=== PATIENT | female | born 1985 | race Caucasian/White ===

== ENCOUNTER 2017-06-06 18:40 | Emergency (ER) | payer BC, MEDICAID, OTHER ==
[~2017-06-06] VITALS: Ht 167.6 cm; Wt 77.0 kg
[~2017-06-06 18:40] MED LIST: T3 PO; TIROSINT PO; TRAM50TA2 PO
[2017-06-06 18:58] VITALS: Ht 167.6 cm; Wt 77.0 kg
[2017-06-06 21:41] LABS: ADD SCAN DIFF NO
--- NOTE | 2017-06-06 21:42 | RADRPT ---
PROCEDURE: US OB. CLINICAL INDICATION: Pelvic cramping and spotting. Positive TECHNIQUE: Transabdominal and transvaginal views of the pelvis are available for review. COMPARISON: 02/27/2014 FINDINGS: Uterus: No evidence of masses and normal in size estimated at 8.6 x 5.8 x 4.9 cm. Endometrial cavity: Intrauterine gestational sac, yolk sac and pole are present with the foll owing information: [place]-rump length:0.46 cm heart rate:122 bpm Gestational sac:1.45 cm Ultrasound estimated gestational age:6 weeks 1 day Echogenic area concerning for subchorionic hemorrhage estimated at 2.9 x 1.4 x 2.2 cm. Right ovary/adnexa: Ovarian size is normal estimated at 4.3 x 2.5 x 2.4 cm. No ovarian or adnexal mass lesion is seen. Left ovary/adnexa: Ovarian size normal estimated at 3.6 x 3.1 x 1.7 cm. No ovarian or adnexal mass lesion is seen. Trace amount of nonspecific free fluid. Cul-de-sac: There is no free fluid. RPTAT:HJJR IMPRESSION: 1. Single viable intrauterine with an estimated gestational age of 6 weeks 1 day. 2. Hypoechoic area concerning for subchorionic hemorrhage estimated at 2.9 x 2.2 x 1.4 cm. Conside r follow-up evaluation. 3. Sonographically normal ovaries with a small amount of nonspecific free fluid in the left adnexa. Physician Vicki Date Time Electronically viewed and signed by Physician Vicki on 06/06/2017 21:41 /
[2017-06-06 21:49] LABS: BASOPHIL # 0.1 10^3/ul (0.0-0.1); BASOPHILS % 0.9 % (0.0-2.0); EOSINOPHILS # 0.2 10^3/ul (0.0-0.5); EOSINOPHILS % 1.5 % (0.0-7.0); HEMOGLOBIN 12.7 g/dl (12.0-16.0); LYMPHOCYTES % 30.5 % (15.0-51.0); MEAN CORPUSCULAR HEMOGLOBIN 31.4 pg (29.0-33.0); MEAN CORPUSCULAR HGB CONC 33.4 g/dl (32.0-37.0); MEAN CORPUSCULAR VOLUME 93.8 fl (82.0-101.0); MEAN PLATELET VOLUME 11.7 fl (7.4-10.4); MONOCYTE # 0.6 10^3/ul (0.3-0.9); MONOCYTES % 6.5 % (0.0-11.0); NEUTROPHILS % 60.4 % (39.0-77.0); PLATELET COUNT 176 10^3/UL (140-415); RED BLOOD COUNT 4.05 10^6/ul (4.20-5.40); RED CELL DISTRIBUTION WIDTH 12.4 % (11.5-14.5); WHITE BLOOD COUNT 9.9 10^3/ul (4.8-10.8)
[2017-06-06 22:04] LABS: ADD UMIC YES; UR ASCORBIC ACID NEGATIVE (NEGATIVE); UR BACTERIA MODERATE /HPF (NONE SEEN); UR BILIRUBIN (Dip) NEGATIVE (NEGATIVE); UR BLOOD (Dip) NEGATIVE (NEGATIVE); UR CLARITY CLOUDY (CLEAR); UR COLOR STRAW (YELLOW); UR GLUCOSE (Dip) NEGATIVE (NEGATIVE); UR KETONES (Dip) NEGATIVE (NEGATIVE); UR LEUKOCYTE ESTERASE (Dip) TRACE Leu/ul (NEGATIVE); UR NITRITE (Dip) NEGATIVE (NEGATIVE); UR RBC 0 /HPF (0-5); UR SPECIFIC GRAVITY (Dip) 1.004 (1.003-1.030); UR SQUAMOUS EPITHELIAL CELL FEW /HPF (FEW); UR TOTAL PROTEIN (Dip) NEGATIVE (NEGATIVE); UR UROBILINOGEN (Dip) NEGATIVE (NEGATIVE)
--- NOTE | 2017-06-06 23:07 | ERD ---
ER Documentation Chief Complaint Date/Time DATE: 06/06/17 TIME: 23:06 Chief Complaint vag bleeding x 1 day, 6 weeks preg pt thinks she had miscarriage HPI This 31-year-old female presents with some vaginal spotting for last day. She may have had some tiny clots but notices no tissues. She is approximately 6 weeks by dates. She denies fevers, vomiting, additional symptoms. She is a G1 para 0. ROS All systems reviewed and are negative except as per history of present illness. Medications Home Meds Reported Medications [Tirosint] No Conflict Check, 100 MCG PO DAILY 08/29/15 [T3] No Conflict Check, 25 MCG PO DAILY 08/29/15 Tramadol HCl (Tramadol HCl) 50 Mg Tablet, 50 MG PO HS 08/29/15 Allergies Allergies: Coded Allergies: No Known Allergies (Verified Allergy, Unknown, 04/08/12) PMhx/Soc Medical and Surgical Hx: pt denies Medical Hx, pt denies Surgical Hx History of Surgery: Yes (R L5-S1 microdisk 2011) Anesthesia Reaction: No Hx Neurological Disorder: No Hx Respiratory Disorders: No Hx Cardiac Disorders: No Hx Psychiatric Problems: No Hx Miscellaneous Medical Probl: Yes (hypothyroidism due to rosa's thyroiditis and polycystic ovarian syndro) Hx Alcohol Use: No Hx Substance Use: No Hx Tobacco Use: No Smoking Status: Never smoker Physical Exam Vitals Vital Signs Date Time Temp Pulse Resp B/P Pulse Ox O2 Delivery O2 Flow Rate FiO2 06/06/17 18:58 97.6 74 18 130/82 100 Physical Exam Const: [] Alert, [id number]. Head: Atraumatic Eyes: Normal Conjunctiva ENT: Normal External Ears, Nose and Mouth. Neck: Full range of motion..~ No meningismus. Resp: Clear to auscultation bilaterally Cardio: Regular rate and rhythm, no murmurs Abd: Soft, non tender, non distended. Normal bowel sounds Skin: No petechiae or rashes Back: No midline or flank tenderness Ext: No cyanosis, or edema Neur: Awake and alert Psych: Normal Mood and Affect Result Diagram: 06/06/17 2030 Results 24 hrs Laboratory Tests Test 06/06/17 20:30 White Blood Count 9.910^3/ul Red Blood Count 4.0510^6/ul Hemoglobin 12.7g/dl Hematocrit 38.0% Mean Corpuscular Volume 93.8fl Mean Corpuscular Hemoglobin 31.4pg Mean Corpuscular Hemoglobin Concent 33.4g/dl Red Cell Distribution Width 12.4% Platelet Count 21449^3/UL Mean Platelet Volume 11.7fl Neutrophils % 60.4% Lymphocytes % 30.5% Monocytes % 6.5% Eosinophils % 1.5% Basophils % 0.9% Nucleated Red Blood Cells % 0.0/100WBC Neutrophils # 6.010^3/ul Lymphocytes # 3.010^3/ul Monocytes # 0.610^3/ul Eosinophils # 0.210^3/ul Basophils # 0.110^3/ul Nucleated Red Blood Cells # 0.010^3/ul Urine Color STRAW Urine Clarity CLOUDY Urine pH 7.0 Urine Specific Yolyn 1.004 Urine Ketones NEGATIVEmg/dL Urine Nitrite NEGATIVEmg/dL Urine Bilirubin NEGATIVEmg/dL Urine Urobilinogen NEGATIVEmg/dL Urine Leukocyte Esterase TRACELeu/ul Urine Microscopic RBC 0/HPF Urine Microscopic WBC 3/HPF Urine Squamous Epithelial Cells FEW/HPF Urine Bacteria MODERATE/HPF Urine Hemoglobin NEGATIVEmg/dL Urine Glucose NEGATIVEmg/dL Urine Total Protein NEGATIVEmg/dl Beta HCG, Quantitative 07170.0mIU/ml Procedures/MDM Patient is Rh+. Quantitative hCG is 15,744 CBC is normal per pelvic ultrasound shows a single intrauterine approximately 6 weeks 1 day with positive heart tones. There is a area of possible subchorionic hemorrhage approximately 2 x 1.5 cm. Patient was stable and ambulatory throughout the ED course. Patient shows no signs of ectopic , signs or symptoms of appendicitis, additional causes of presenting complaints. Urine shows no signs of infection. Patient discharged home instructions for fluids and Tylenol for pain and OB follow-up. Patient was advised to return for fevers, worsening pain , bleeding, new worsening symptoms or OB as directed. Departure Diagnosis: Primary Impression: Vaginal bleeding in patient at less than 20 weeks ges... Condition: Stable Patient Instructions: Bleeding During Early Additional Instructions: Examinations normal today. Recheck with OB this week or return for worsening bleeding, pain, new symptoms. May be early normal or early miscarriage. Okay to take Tylenol for pain. DANIELA UNGER MD Jun 06, 2017 23:07
[2017-06-06 23:15] VITALS: BP 125/80; PULSE 67; RESP 16; TEMP 98.3
== END 2017-06-06 23:17 | disposition home or self-care (01) ==
LOC: FTE 18:40
DX: O20.9 Hemorrhage in early pregnancy, unspecified (principal); O99.281 Endocrine, nutritional and metabolic diseases complicating pregnancy, first trimester; E03.9 Hypothyroidism, unspecified; R10.2 Pelvic and perineal pain; Z3A.01 Less than 8 weeks gestation of pregnancy
CPT/HCPCS: 36415; 76801; 76817; 81001; 84702; 85025; 86900; 86901; Z7502